=== PATIENT | female | born 1965 | race American Indian/Alaskan Native ===

== ENCOUNTER 2017-09-26 08:12 | Outpatient (CLI) | payer OTHER ==
--- NOTE | 2017-09-26 11:08 | Mammography Report ---
LEFT DIGITAL DIAGNOSTIC MAMMOGRAM with CAD: 09/26/17 08:12:00 CLINICAL: Palpable left breast lump. Status post reduction mammoplasty. COMPARISON:[facility] 06/15/17 FINDINGS: The breast is mostly fatty with a few scattered fibroglandular densities. Benign scattered calcifications.No mass, architectural distortion or suspicious calcifications. No mammographic finding at an outer palpable marker. Normal fat underlies the marker. IMPRESSION: No mammographic evidence of malignancy. BI-RADS CATEGORY: 2 - - Benign RECOMMENDATION: Routine mammographic screening. ACR BI-RADS MAMMOGRAPHIC CODES: 0 = Needs additional imaging evaluation; 1 = Negative; 2 = Benign; 3 = Probably benign; 4 = Suspicious; 5 = Malignant; 6 = Known biopsy-proven malignancy COMMENT: 1. Dense breast tissue, i.e., adenosis, fibrocystic changes, etc., may obscure an underlying neoplasm. 2. Approximately 10% of cancers are not detected with mammography. 3. A negative mammography report should not delay biopsy if a clinically suspicious mass is present. COMMENT: Patient follow-up letters are generated by our [employer] application.
== END 2017-09-26 08:13 | disposition home or self-care (01) ==
LOC: SPVWC 08:12 → SPVIMAG 08:12 → SPVWC 08:13
PROVIDERS: ATTEND Surgery
DX: N63.20 Unspecified lump in the left breast, unspecified quadrant (principal); R92.1 Mammographic calcification found on diagnostic imaging of breast; Z98.890 Other specified postprocedural states

== ENCOUNTER 2021-09-13 14:06 | Outpatient (CLI) | payer OTHER | END 2021-09-13 14:07 | disposition home or self-care (01) | LOC: LABHHL 14:06 | PROVIDERS: ATTEND Surgery | DX: R22.42 Localized swelling, mass and lump, left lower limb (principal) | CPT/HCPCS: 88307 ==